=== PATIENT | female | born 1945 | race African-American/Black ===

== ENCOUNTER 2016-06-30 11:52 | Emergency (ER) | payer OTHER ==
[~2016-06-30] VITALS: Ht 160 cm; Wt 94.5 kg
[~2016-06-30 11:52] MED LIST: ASPIRIN E.C.81 M1 PO; COUMADIN,JANTOVE1 MG PO; FEOSOL325 MG PO; Glucotrol PO; K-Dur PO; Lasix PO; Levaquin PO; NORVASC5 MG PO; Norvasc PO; OxyCODONE PO; OxyCONTIN PO; PROTONIX40 MG PO; Proventil,Ventolin H IH; SENOKOT S,PE1 TABLET PO; TENORMIN100 M1 PO; Tenormin PO; Tylenol Regular Stre PO; Zestoretic,Prinzide PO; Zocor PO; [UNRECOGNIZED DRUG - OTHER] PO
[2016-06-30 12:11] VITALS: BP 169/101
[2016-06-30 12:57] LABS: HEMATOCRIT 40.5 % (36.0-46.0); MCH 27.2 PG (29.0-34.0); MCHC 32.3 G/DL (30.0-36.0); RBC DIS.WIDTH-CV 15.9 % (11.8-14.6); RBC DIS.WIDTH-SD 47.2 % (39-53); RED BLOOD COUNT 4.82 M/uL (3.80-5.20); WHITE BLOOD COUNT 8.5 K/uL (4.1-10.2)
[2016-06-30 13:39] LABS: ALKALINE PHOSPHATASE 148 IU/L (3-129); ANION GAP 11 MEQ/L (2-14); CHLORIDE 105 MEQ/L (99-109); GFR ESTIMATE (CALCULATED) > 59 mL/min/; GLUCOSE 100 mg/dL (70-99); LIPASE 29 U/L (1.0-51.0); POTASSIUM 4.2 MEQ/L (3.7-5.4); SAMPLE HEMOLYSIS CHECK 0; SAMPLE ICTERIC CHECK 0; SAMPLE LIPEMIA CHECK 0; SODIUM 142 MEQ/L (136-147); TOTAL BILIRUBIN 1.1 MG/DL (0.0-1.0); UREA NITROGEN (BUN) 13 mg/dL (9-23)
[2016-06-30 13:42] LABS: MEAN PLAT.VOLUME 11.3 uM^3 (9.5-12.4); PLATELET COUNT 294 K/uL (156-360)
[2016-06-30] MEDS ORDERED: NORVASC10 MG PO (13:47)
[2016-06-30] MEDS ORDERED: LO-DOSE ASPIRIN81 M2 PO (13:47)
[2016-06-30] MEDS ORDERED: TENORMIN100 MG PO (13:48)
[2016-06-30] MEDS ORDERED: LIPITOR40 MG PO (13:48)
[2016-06-30] MEDS ORDERED: LASIX20 MG PO (13:49)
[2016-06-30] MEDS ORDERED: PLAVIX75 MG PO (13:49)
[2016-06-30] MEDS ORDERED: PRINZIDE 20-121 EACH PO (13:50)
[2016-06-30] MEDS ORDERED: GLUCOTROL10 MG PO (13:50)
[2016-06-30] MEDS ORDERED: NITROSTAT0.4 MG SL (13:51)
[2016-06-30] MEDS ORDERED: ATIVAN1 MG PO (13:51)
[2016-06-30] MEDS ORDERED: ZANTAC150 MG PO (13:52)
[2016-06-30] MEDS ORDERED: POTASSIUM CITR15 MEQ PO (13:52)
[2016-06-30] MEDS ORDERED: VENTOLIN HFA18 GM IH (13:53)
[2016-06-30] MEDS ORDERED: ERGOCALCIF50000 UNIT PO (13:54)
[2016-06-30 14:33] LABS: ADD MIUA? YES; BILIRUBIN NEGATIVE; BLOOD SMALL; COLOR STRAW ((YELLOW)); GLUCOSE (STRIP) NEGATIVE; KETONES NEGATIVE; LEUKOCYTES SMALL; NITRITE NEGATIVE; PROTEIN (STRIP) 100; SPECIFIC GRAVITY 1.008 (1.000-1.030); UROBILINOGEN 0.2 MG/DL (0.2-1.0)
[2016-06-30 14:40] LABS: BACTERIA NONE SEEN /HPF; EPITHELIAL CELLS RARE /HPF; MUCUS NONE SEEN /LPF; RED BLOOD CELLS 0-5 /HPF (0-5); UCUL ADDED? NO
[2016-06-30] MEDS ORDERED: NORCO 5/3251 TABLET PO (18:23)
== END 2016-06-30 18:36 | disposition home or self-care (01) ==
LOC: EME 11:52
DX: N28.89 Other specified disorders of kidney and ureter (principal); R16.0 Hepatomegaly, not elsewhere classified; I10 Essential (primary) hypertension; K80.20 Calculus of gallbladder without cholecystitis without obstruction; E11.9 Type 2 diabetes mellitus without complications; J44.9 Chronic obstructive pulmonary disease, unspecified; I48.91 Unspecified atrial fibrillation; I50.9 Heart failure, unspecified; Z95.5 Presence of coronary angioplasty implant and graft; Z79.02 Long term (current) use of antithrombotics/antiplatelets; Z79.82 Long term (current) use of aspirin
CPT/HCPCS: 74177; 76705; 80053; 81003; 83690; 83880; 85027; 99281; 99284; J7030

== ENCOUNTER → 2016-07-27 | Outpatient (CLI) | payer OTHER ==
[~2016-07-27] MED LIST changes: +ATIVAN1 MG PO; +DURAGESIC12 MCG TD; +ERGOCALCIF50000 UNIT PO; +GLUCOTROL10 MG PO; +LASIX20 MG PO; +LIPITOR40 MG PO; +LO-DOSE ASPIRIN81 M2 PO; +NITROSTAT0.4 MG SL; +NORCO 5/3251 TABLET PO; +NORVASC10 MG PO; +PLAVIX75 MG PO; +POTASSIUM CHLO20 ME2 PO; +POTASSIUM CITR15 MEQ PO; +PRINZIDE 20-121 EACH PO; +TENORMIN100 MG PO; +VENTOLIN HFA18 GM IH; +ZANTAC150 MG PO
[2016-07-27 11:02] LABS: INTER. NORMALIZED RATIO 1.1; PROTHROMBIN TIME 11.1 (9.2-11.2)
== END | disposition home or self-care (01) ==
LOC: OPR 09:56 → EDSTATUS 10:00
PROVIDERS: Internal Medicine Hematology & Oncology
PROC: 0JB73ZX Excision of Back Subcutaneous Tissue and Fascia, Percutaneous Approach, Diagnostic (ICD-10-PCS; principal; 2016-07-27)
DX: C79.89 Secondary malignant neoplasm of other specified sites (principal); M54.5 Low back pain; N28.89 Other specified disorders of kidney and ureter; R16.0 Hepatomegaly, not elsewhere classified; E11.9 Type 2 diabetes mellitus without complications; E66.9 Obesity, unspecified; Z98.61 Coronary angioplasty status
CPT/HCPCS: 77012; 85610; 85730; 88305; 88341 TC; 88342 TC; J3010

== ENCOUNTER 2016-09-16 04:15 | Observation (INO) | payer OTHER ==
[~2016-09-16] VITALS: Ht 160 cm; Wt 83.9 kg
[~2016-09-16 04:15] MED LIST changes: +COMPAZINE10 MG PO; +ZOFRAN8 MG PO
[2016-09-16 05:40] LABS: ADD MIUA? YES; BILIRUBIN NEGATIVE; BLOOD NEGATIVE; COLOR YELLOW ((YELLOW)); GLUCOSE (STRIP) NEGATIVE; KETONES NEGATIVE; LEUKOCYTES SMALL; NITRITE NEGATIVE; PROTEIN (STRIP) 30; SPECIFIC GRAVITY 1.009 (1.000-1.030); UROBILINOGEN 0.2 MG/DL (0.2-1.0)
[2016-09-16 05:48] LABS: HEMATOCRIT 42.2 % (36.0-46.0); MCH 26.8 PG (29.0-34.0); MCV 83.9 FL (83-99); MEAN PLAT.VOLUME 11.2 uM^3 (9.5-12.4); PLATELET COUNT 208 K/uL (156-360); RBC DIS.WIDTH-SD 45.5 % (39-53); RED BLOOD COUNT 5.03 M/uL (3.80-5.20)
[2016-09-16 05:51] LABS: BACTERIA NONE SEEN /HPF; EPITHELIAL CELLS RARE /HPF; MUCUS NONE SEEN /LPF; RED BLOOD CELLS 0-5 /HPF (0-5); UCUL ADDED? NO
[2016-09-16 05:54] LABS: WHITE BLOOD COUNT 4.9 K/uL (4.1-10.2)
[2016-09-16 06:03] LABS: CHLORIDE 99 mEq/L (99-109); SODIUM 140 mEq/L (136-147)
[2016-09-16 06:05] LABS: POTASSIUM 4.7 mEq/L (3.7-5.4)
[2016-09-16 06:06] LABS: GLUCOSE 100 mg/dL (70-99)
[2016-09-16 06:07] LABS: ANION GAP 10 MEQ/L (2-14)
[2016-09-16 06:08] LABS: TOTAL BILIRUBIN 0.7 mg/dL (0.0-1.0)
[2016-09-16 06:09] LABS: ALKALINE PHOSPHATASE 117 IU/L (3-129); GFR ESTIMATE (CALCULATED) > 59 mL/min/
[2016-09-16 06:10] LABS: UREA NITROGEN (BUN) 13 mg/dL (9-23)
[2016-09-16 06:25] LABS: POINT-OF-CARE METER ID UU13113702
[2016-09-16 09:04] LABS: Estimated Average Glucose 128 mg/dL (70-123); HEMOGLOBIN A1c (GLYCOHEMOGLOB) 6.1 % HGB (Below 5.7)
[2016-09-16 10:10] VITALS: BP 174/94
[2016-09-16 13:24] LABS: POINT-OF-CARE METER ID UU14162513
[2016-09-16 14:12] LABS: POINT-OF-CARE METER ID UU14100415
[2016-09-16] MEDS ORDERED: ACCU CHEK AVIV MC (14:24)
[2016-09-16] MEDS ORDERED: DURAGESIC50 MCG TD (14:26)
[2016-09-16] MEDS ORDERED: ROXICODONE5 MG PO (14:33)
[2016-09-16 17:04] LABS: POINT-OF-CARE METER ID UU14162513
[2016-09-16 20:00] VITALS: BP 158/89
[2016-09-16 22:41] LABS: POINT-OF-CARE METER ID UU13113831
[2016-09-17 01:58] VITALS: BP 163/76
[2016-09-17 06:00] VITALS: BP 152/103
[2016-09-17 06:01] LABS: HEMATOCRIT 44.6 % (36.0-46.0); MCH 27.4 PG (29.0-34.0); MCHC 33.2 G/DL (30.0-36.0); MCV 82.4 FL (83-99); MEAN PLAT.VOLUME 11.5 uM^3 (9.5-12.4); PLATELET COUNT 236 K/uL (156-360); RBC DIS.WIDTH-CV 15.3 % (11.8-14.6); RBC DIS.WIDTH-SD 45.3 % (39-53); RED BLOOD COUNT 5.41 M/uL (3.80-5.20); WHITE BLOOD COUNT 5.5 K/uL (4.1-10.2)
[2016-09-17 06:57] LABS: ANION GAP 14 MEQ/L (2-14); CHLORIDE 95 MEQ/L (99-109); GFR ESTIMATE (CALCULATED) > 59 mL/min/; POTASSIUM 4.8 MEQ/L (3.7-5.4); SAMPLE HEMOLYSIS CHECK 0; SAMPLE ICTERIC CHECK 0; SAMPLE LIPEMIA CHECK 0; SODIUM 134 MEQ/L (136-147); UREA NITROGEN (BUN) 20 mg/dL (9-23)
[2016-09-17 07:11] LABS: GLUCOSE 227 mg/dL (70-99)
[2016-09-17 14:00] VITALS: BP 163/73
[2016-09-17 14:07] LABS: POINT-OF-CARE METER ID UU13113831
[2016-09-17] MEDS ORDERED: LISINOPRIL20 MG PO (15:07)
[2016-09-17] MEDS ORDERED: JANUVIA25 M1 PO (15:07)
== END 2016-09-17 16:55 | disposition home health service (06) ==
LOC: EME → EDBD 04:15 → EDOF 07:26 → 5WEST 07:26
PROVIDERS: Emergency Medicine; Hospitalist; Nurse Practitioner Adult Health
DX: E11.649 Type 2 diabetes mellitus with hypoglycemia without coma (principal); C67.9 Malignant neoplasm of bladder, unspecified; I11.0 Hypertensive heart disease with heart failure; I50.9 Heart failure, unspecified; K59.00 Constipation, unspecified; G43.909 Migraine, unspecified, not intractable, without status migrainosus; K21.9 Gastro-esophageal reflux disease without esophagitis; E78.5 Hyperlipidemia, unspecified
CPT/HCPCS: 77412; 80048; 80053; 81003; 82948; 83036; 85027; 93005; 99281; 99284; G0378; J1644; J1815

== ENCOUNTER 2016-10-12 19:56 | Inpatient (IN) | payer OTHER ==
[~2016-10-12] VITALS: Ht 160 cm; Wt 74.9 kg
[~2016-10-12 19:56] MED LIST changes: +ACCU CHEK AVIV MC; +DURAGESIC50 MCG TD; +JANUVIA25 M1 PO; +LISINOPRIL20 MG PO; +ROXICODONE5 MG PO
[2016-10-12 22:20] LABS: HEMATOCRIT 35.8 % (36.0-46.0); MCH 27.2 PG (29.0-34.0); MCHC 32.7 G/DL (30.0-36.0); MCV 83.3 FL (83-99); MEAN PLAT.VOLUME 11.8 uM^3 (9.5-12.4); RBC DIS.WIDTH-CV 16.9 % (11.8-14.6); RBC DIS.WIDTH-SD 45.5 % (39-53)
[2016-10-12 22:21] LABS: PLATELET COUNT 291 K/uL (156-360)
[2016-10-12 22:29] LABS: CHLORIDE 103 mEq/L (99-109); POTASSIUM 5.1 mEq/L (3.7-5.4); SODIUM 138 mEq/L (136-147)
[2016-10-12 22:31] LABS: GLUCOSE 110 mg/dL (70-99)
[2016-10-12 22:32] LABS: ANION GAP 11 MEQ/L (2-14)
[2016-10-12 22:36] LABS: UREA NITROGEN (BUN) 23 mg/dL (9-23)
[2016-10-12 22:38] LABS: LIPASE 9 U/L (1.0-51.0)
[2016-10-12 22:58] LABS: TOTAL BILIRUBIN 0.7 mg/dL (0.0-1.0)
[2016-10-12 22:59] LABS: ALKALINE PHOSPHATASE 106 IU/L (3-129)
[2016-10-12 23:00] LABS: GFR ESTIMATE (CALCULATED) 52 mL/min/
[2016-10-12 23:08] LABS: TROP-I INTERPRETATION NEGATIVE; TROPONIN-I 0.07 ng/mL (0.0-0.30)
[2016-10-13 00:13] LABS: ADD MIUA? NO; BILIRUBIN NEGATIVE; BLOOD NEGATIVE; COLOR YELLOW ((YELLOW)); GLUCOSE (STRIP) NEGATIVE; KETONES 5; LEUKOCYTES NEGATIVE; NITRITE NEGATIVE; PROTEIN (STRIP) 30; SPECIFIC GRAVITY 1.017 (1.000-1.030); UCUL ADDED? NO
[2016-10-13] MEDS ORDERED: ALKA-SELTZER G1 EAC1 PO (01:04)
[2016-10-13] MEDS ORDERED: ATIVAN INTE2 MG/1 ML PO (01:05)
[2016-10-13] MEDS ORDERED: LIPITOR40 MG PO (01:08)
[2016-10-13] MEDS ORDERED: METAMUCIL MULT425 GM PO (01:08)
[2016-10-13] MEDS ORDERED: BISAC-EVAC10 MG PR (01:10)
[2016-10-13] MEDS ORDERED: MORPHINE CON20 MG/M1 PO (01:11)
[2016-10-13] MEDS ORDERED: HALDOL10 MG/5 ML PO (01:13)
[2016-10-13] MEDS ORDERED: HYOSCYAMINE0.125 M1 SL (01:13)
[2016-10-13] MEDS ORDERED: FEVERALL650 M1 PR (01:14)
[2016-10-13 03:41] VITALS: BP 146/65
[2016-10-13 07:00] VITALS: BP 117/57
[2016-10-13 09:41] LABS: TROP-I INTERPRETATION NEGATIVE; TROPONIN-I 0.06 ng/mL (0.0-0.30)
[2016-10-13 11:30] VITALS: BP 118/58
[2016-10-13 15:26] LABS: TROP-I INTERPRETATION NEGATIVE; TROPONIN-I 0.08 ng/mL (0.0-0.30)
[2016-10-13 17:00] VITALS: BP 144/64
[2016-10-13 17:09] LABS: POINT-OF-CARE METER ID UU13113831
[2016-10-13 19:00] VITALS: BP 132/62
[2016-10-13 23:34] LABS: POINT-OF-CARE METER ID UU13113831
[2016-10-14 01:00] VITALS: BP 150/68
[2016-10-14 03:55] VITALS: BP 146/70
[2016-10-14 05:47] LABS: BASOPHIL COUNT 0.1 K/uL (0-0.1); EOSINOPHIL (%) 0.3 % (0-5); HEMATOCRIT 31.1 % (36.0-46.0); IMMATURE GRANULOCYTE (%) 0.4 % (0.0-0.7); IMMATURE GRANULOCYTE COUNT 0.1 K/uL; INSTRUMENT ABS NEUTROPHIL CT 9.3 K/uL; LYMPHOCYTE COUNT 0.7 K/uL (1.0-2.8); MCHC 33.4 G/DL (30.0-36.0); MCV 83.6 FL (83-99); MEAN PLAT.VOLUME 12.6 uM^3 (9.5-12.4); MONOCYTE (%) 11.4 % (3-12); MONOCYTE COUNT 1.3 K/uL (0-0.8); NEUTROPHIL (%) 81.6 % (45-76); NEUTROPHIL COUNT 9.3 K/uL (1.8-6.4); PLATELET COUNT 259 K/uL (156-360); RBC DIS.WIDTH-CV 17.1 % (11.8-14.6); RBC DIS.WIDTH-SD 45.7 % (39-53); RED BLOOD COUNT 3.72 M/uL (3.80-5.20); WHITE BLOOD COUNT 11.4 K/uL (4.1-10.2)
[2016-10-14 07:18] VITALS: BP 147/78
[2016-10-14 11:08] LABS: ALKALINE PHOSPHATASE 84 IU/L (3-129); ANION GAP 8 MEQ/L (2-14); CHLORIDE 103 MEQ/L (99-109); GFR ESTIMATE (CALCULATED) 57 mL/min/; GLUCOSE 83 mg/dL (70-99); POTASSIUM 4.7 MEQ/L (3.7-5.4); SAMPLE HEMOLYSIS CHECK 0; SAMPLE ICTERIC CHECK 0; SAMPLE LIPEMIA CHECK 0; SODIUM 138 MEQ/L (136-147); TOTAL BILIRUBIN 0.5 MG/DL (0.0-1.0); UREA NITROGEN (BUN) 22 mg/dL (9-23)
[2016-10-14 11:10] VITALS: BP 154/87
[2016-10-14 11:27] LABS: POINT-OF-CARE METER ID UU13113717
[2016-10-14 14:58] VITALS: BP 144/65
== END 2016-10-14 16:14 | disposition hospice, home (50) | DRG 687 ==
LOC: EME 19:56 → EDOF 10-13 01:31 → 5WEST 10-13 01:31 → EDOF 10-13 01:31 → 5WEST 10-13 03:15 → 5SOUTH 10-13 15:03 → 5WEST 10-13 15:03 → 5SOUTH 10-14 01:19
PROVIDERS: Emergency Medicine; Hospitalist
DX: C67.9 Malignant neoplasm of bladder, unspecified (principal); Z66 Do not resuscitate; Z51.5 Encounter for palliative care; D72.829 Elevated white blood cell count, unspecified; F01.51 Vascular dementia, unspecified severity, with behavioral disturbance; E11.9 Type 2 diabetes mellitus without complications; E78.5 Hyperlipidemia, unspecified; I10 Essential (primary) hypertension; I25.10 Atherosclerotic heart disease of native coronary artery without angina pectoris; I47.2 Ventricular tachycardia; K21.9 Gastro-esophageal reflux disease without esophagitis; I25.2 Old myocardial infarction; Z98.61 Coronary angioplasty status; Z85.528 Personal history of other malignant neoplasm of kidney; Z79.82 Long term (current) use of aspirin; Z79.84 Long term (current) use of oral hypoglycemic drugs; Z79.02 Long term (current) use of antithrombotics/antiplatelets
CPT/HCPCS: 70450; 71010; 80053; 81003; 82948; 83690; 83735; 84484; 85025; 85027; 90839; 93005; 99281; 99285; J1644; J2405